=== PATIENT | male | born 1980 | race Caucasian/White ===

== ENCOUNTER 2021-04-24 10:04 | Outpatient (CLI) | payer BC, SELFPAY ==
--- NOTE | 2021-04-24 10:08 | ECG_ITS ---
Measurements Intervals [place] Rate: 51 P: 19 [place]: 205 QRS: 47 QRSD: 104 T: 60 QT: 411 QTc: 380 Interpretive Statements SINUS BRADYCARDIA BORDERLINE ECG Electronically Signed On 04-24-2021 10:25:03 CDT by Vasquez Houston D.O.
[2021-04-24 11:00] LABS: Anion Gap 7 mmol/L (8-16); Blood Urea Nitrogen 20 mg/dL (9-20); Carbon Dioxide 31 mmol/L (22-30); Chloride 105 mmol/L (98-107); Estimated Glomerular Filt Rate > 60; Glucose 90 mg/dL (65-110); Potassium 3.9 mmol/L (3.4-5.0); Sodium 143 mmol/L (137-145)
== END 2021-04-24 10:05 | disposition home or self-care (01) ==
LOC: ANHSURGERY 10:08
PROVIDERS: PCP Family Medicine; Visit Provider Surgery
DX: Z01.818 Encounter for other preprocedural examination (principal); K40.90 Unilateral inguinal hernia, without obstruction or gangrene, not specified as recurrent; I10 Essential (primary) hypertension
CPT/HCPCS: 36415; 80048; 86850; 86900; 86901; 93005

== ENCOUNTER 2021-04-27 03:08 | Day surgery (SDC) | payer BC, SELFPAY ==
[2021-04-24 09:35] VITALS: BMI 29.8
[2021-04-27] VITALS (12 sets, daily range): BP systolic 127–145; BP diastolic 64–83; PULSE 52–69; RESP 12–18; TEMP 36.4–36.8; O2SAT 94–100
--- NOTE | 2021-04-27 10:33 | WPDANESEPPF ---
Anes - Initial Pre Proc Eval Procedure: Operation Date: 04/27/21 12:00 Proposed Procedures p Laparoscopic Totally Extra-Peritoneal Right Inguinal Hernia Repair with Mesh - Alex Dias MD Date/Time: 04/27/21 10:33 Surgeon: Alex Dias MD Pre Op Diagnosis: right inguinal hernia Patient Data Age: 41 Gender: M Height: 1.79 m Weight: 95.71 kg Allergies Allergy/AdvReac Type Severity Reaction Status Date / Time No Known Allergies Allergy Verified 04/27/21 10:33 Home Medications Medication Instructions Recorded Confirmed Type indapamide 2.5 mg tablet 2.5 mg PO DAILY #90 tablet 01/16/21 04/27/21 Rx lisinopril 40 mg PO DAILY 04/24/21 04/27/21 History Patient hx anesthesia problems: none Family hx anesthesia problems: none Results Review: All pre-operative results and documents have been reviewed as part of the pre-operative evaluation. [facility] Past Medical History Medical History Encounter for wellness examination Erectile dysfunction Morbid obesity Morbid obesity with BMI of 45.0-49.9, adult Primary hypertension Prostate cancer screening Thrombocytosis mild Surgical History Surgical History History of cholecystectomy (~07/19/13) Family History Family History Other Hypertension Social History Social History Smoking status: Never smoker Second hand tobacco smoke exposure: No Alcohol intake: current Alcohol use details: RARE Substance use: current Substance use type: marijuana Other substance usage details: GUMMIES Last use: 03/05/21 Living arrangements: with family Spiritual care concerns: No Anes - Eval Final PreProcedure Day of Procedure 04/27/21 10:33 Patient weight: overweight Heart: regular rate and rhythm Lungs: clear to auscultation Airway: Mallampati scale class 1 Neurological: alert and oriented Last oral intake: >/= 8 hours ASA classification: II Emergent: no Anesthetic plan: proceed Anesthesia type and monitoring: general ETT and standard monitoring Results Review: All pre-operative results and documents have been reviewed as part of the pre-operative evaluation. Informed Consent: The patient's anesthetic plan and its attendant risks and benefits were discussed with the patient/family/POA. Questions were solicited and answers provided to the satisfaction of the patient/family/POA.
[2021-04-27] MEDS: LACTATED RINGERS 1,000 ML 30 ML IV CONT ×2 (10:50→13:34)
[2021-04-27] MEDS: KETOROLAC 15 MG/ML VIAL (*BKC) IV PUSH (10:56)
[2021-04-27] MEDS: ACETAMINOPHEN 500 MG TABLET 1000 MG PO (10:56)
--- NOTE | 2021-04-27 11:11 | WPDHPUPDATE1 ---
History and Physical Update Update Date/Time: 04/27/21 11:11 History and Physical has been reviewed, including an updated exam of the patient. There are NO changes in the patient's condition. Risks, benefits, and alternatives have been discussed and questions answered. Patient agrees to proceed with procedure.
[2021-04-27] MEDS: ceFAZolin 2 GM/D5W 50 ML 2 GM/50 ML BAG IVPB (11:19)
[2021-04-27] MEDS: LIDO 2%/EPINEPHRINE 1:100,000 20 ML VIAL INFILTRATE (12:23)
--- NOTE | 2021-04-27 13:22 | SUR.OPER ---
EBL: 15cc
--- NOTE | 2021-04-27 13:29 | SUR.OPER ---
Urine:300cc
--- NOTE | 2021-04-27 13:54 | W.PM.PROC2 ---
Procedure Note - Detailed Date of Procedure 04/27/21 Pre-op Diagnosis right inguinal hernia Post-op Diagnosis other ( unilateral Right Indirect inguinal hernia) Procedure Performed 1. 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 He has some enlarged veins along the midline at the site we entered the rectus sheath. Patient had a moderate to large size indirect inguinal hernia which was able to be stepped back nicely. Description of Procedure After appropriate marking of the operative site prior to surgery, the patient was taken to the operating room. After induction of adequate general endotracheal anesthesia by [facility] staff, the patient was carefully prepped and draped in a sterile fashion. A timeout was performed confirming the procedure and site of surgery on the right. Following this, local anesthetic was infiltrated into the umbilical area and a vertical incision was made just below the umbilicus. I carefully dissected down to the the anterior rectus sheath on the right and then made a 1 cm vertical slit in the fascia just off the midline. The rectus muscle was retracted to right and then just in front of the posterior rectus sheath, a dissecting balloon was passed onto the pubic bone. After placing slight pressure on the left groin area, this was insufflated with 40 pumps, while watching with the 0 degree laparoscope. It appeared that I was in the proper plane. Following this, the dissecting balloon was removed and replaced by a Taylor cannula with a circular 30 cc conforming balloon. Following this, the 0 degree laparoscope was used to carefully place two 5mm [employer] slim trocars, just to the left of midline. One suprapubic and other one mcfp between the umbilicus and the pubic bone. Tedious dissection then occurred in the preperitoneal space exposing the Daryn's ligament, the cord structures, the muscular tissue anteriorly, and the retroperitoneum. This was then able to be dissected back and we could visualize the posterior peritoneum. I then dissected up to the level of the umbilicus and it was ready for mesh placement. After carefully confirming all sites and that the mesh would cover the direct space, I carefully rolled the Right Large 3D Bard mesh and slid this through the 12 mm trocar at the umbilical level down into the preperitoneal space. This unfurled nicely and sat nicely against the right groin structures. It nicely covered all spaces and it went back nicely into the preperitoneal space along the anterior-superior iliac spine. Because of this patient's size it appears that the mesh wanted to fold more than I liked. Therefore a the care tack Tacker was opened and I placed 3 tacks through the mesh into Daryn's ligament 1 tack to the medial side of the epigastric vessels anteriorly into the anterior abdominal wall and 2 tacks anteriorly lateral to the epigastric vessels. I took a picture of it carefully, which showed that the mesh will cover the preperitoneal groin well, and had come down to the posterior border of the peritoneum. Once this was accomplished, I took the patient out of Trendelenburg position, rotated the patient back even, and then observed using a dissector through the higher 5 mm trocar to keep the mesh pushed down against the anterior and posterior abdominal wall retroperitoneally and hold the indirect hernia sac on top of the mesh so that it would fall on the mesh as we allowed the gas to escape from the abdomen. The peritoneum was then allowed to fall on to the mesh and it held the mesh nicely in place. As much as possible while we were watching all the CO2 gas was compressed out of the preperitoneal space. I then carefully removed each of the 5 mm trocars under direct vision and com
== END 2021-04-27 17:39 | disposition home or self-care (01) ==
PROVIDERS: PCP Family Medicine; Visit Provider Surgery
PROC: (CPT 49650; principal; 2021-04-27 12:00)
DX: K40.90 Unilateral inguinal hernia, without obstruction or gangrene, not specified as recurrent (principal); I10 Essential (primary) hypertension; F12.90 Cannabis use, unspecified, uncomplicated
CPT/HCPCS: 49650; 36415; 80048; 86850; 86900; 86901; 93005; A9270; C1781; J0690; J1100; J1170; J1885; J2250; J2405; J2704; J2710; J3010; J7030; J7120

== ENCOUNTER 2022-01-11 16:54 | Outpatient (CLI) | payer BC, SELFPAY ==
[2022-01-11 18:33] LABS: Hepatitis B Surface Antigen Negative (Negative)
[2022-01-11 18:42] LABS: HIV 1/2 Ab P24 Ag Result Negative (Negative)
[2022-01-11 18:51] LABS: Hepatitis C Virus Antibody Negative (Negative)
[2022-01-15 19:26] LABS: Hepatitis B Core Ab Total Nonreactive (Nonreactive)
== END 2022-01-11 16:55 | disposition home or self-care (01) ==
LOC: ANHLAB 16:56
PROVIDERS: PCP Family Medicine; Visit Provider Family Medicine
DX: Z20.2 Contact with and (suspected) exposure to infections with a predominantly sexual mode of transmission (principal)
CPT/HCPCS: 36415; 86703; 86704; 86803; 87340; G0432

== ENCOUNTER 2022-02-12 14:57 | Outpatient (CLI) | payer BC, SELFPAY ==
[2022-02-12 16:50] LABS: HIV 1/2 Ab P24 Ag Result Negative (Negative)
== END 2022-02-12 14:58 | disposition home or self-care (01) ==
LOC: ANHLAB 14:58
PROVIDERS: PCP Family Medicine; Visit Provider Family Medicine
DX: Z20.2 Contact with and (suspected) exposure to infections with a predominantly sexual mode of transmission (principal)
CPT/HCPCS: 36415; 86703; G0432